=== PATIENT | male | born 1955 | race Caucasian/White ===

== ENCOUNTER 2019-11-08 01:53 | Emergency (ER) | payer OTHER ==
[~2019-11-08] VITALS: Ht 185.4 cm; Wt 79.5 kg
--- NOTE | 2019-11-08 02:05 | NUR ---
CASEY ESTRADA FROM [facility]. PER [facility] STAFF, PT NORMALLY A+OX4 LAST KNOWN WELL WAS 1700. THIS EVENING PT WAS NOTED TO BE A+OX1. IN ER PT ADMITS TO DRINKING ALCOHOL TODAY. PT WITH FLAT AFFECT AND IS NOTED TO BE A+OX4 IN ER. PT ATTACHED TO ALL MONITORS. LAW ENFORCEMENT AT BEDSIDE. PT IN NAD AND RESTING ON GURNEY.
--- NOTE | 2019-11-08 02:15 | NUR ---
LATE ENTRY: REPORT FROM SYLVIA RN, PT RESTING ON [place], NAD, APPEARS COMFORTABLE, DENIES ADDITIONAL NEEDS AT THIS TIME, INFORMED THAT WE NEED A URINE SAMPLE, PT ATTEMPTED TO OBTAIN BUT WAS UNABLE TO URINATE AT THIS TIME. WCLASHANDA.
[2019-11-08 02:31] LABS: BASOPHILS # (AUTO) 0.03 x10^3/uL (0-0.1); BASOPHILS % (AUTO) 1 % (0-1); EOSINOPHILS # (AUTO) 0.05 x10^3/uL (0-0.4); EOSINOPHILS % (AUTO) 1 % (1-7); LYMPHOCYTES # (AUTO) 0.83 x10^3/uL (1-3.4); LYMPHOCYTES % (AUTO) 21 % (22-44); MD NO; MEAN CORPUSCULAR HEMOGLOBIN 36.3 pg (27.5-34.5); MEAN CORPUSCULAR HGB CONC 33.8 g/dL (33.2-36.2); MEAN CORPUSCULAR VOLUME 107.5 fL (81-97); MEAN PLATELET VOLUME 7.9 fL (7.4-10.4); MONOCYTES # (AUTO) 0.33 x10^3/uL (0.2-0.8); MONOCYTES % (AUTO) 8 % (2-9); NEUTROPHILS # (AUTO) 2.79 x10^3/uL (1.8-6.8); NEUTROPHILS % (AUTO) 69 % (42-75); PLATELET COUNT 118 x10^3/uL (130-400); RED BLOOD COUNT 4.01 x10^6/uL (4.38-5.82); RED CELL DISTRIBUTION WIDTH 14.2 % (9.4-14.8)
[2019-11-08 02:43] LABS: ALBUMIN 3.8 g/dL (3.4-5.0); ANION GAP 6 mmol/L (5-15); CALCIUM 8.7 mg/dL (8.5-10.1); CHLORIDE 99 mmol/L (98-107); CREATININE 0.58 mg/dL (0.7-1.3)
--- NOTE | 2019-11-08 03:16 | NUR ---
PT RESTING IN [facility]. WAITING FOR CT. NO CHANGE IN CONDITION, NAD, WAITING FOR UA SAMPLE. WCTM.
--- NOTE | 2019-11-08 03:48 | NUR ---
PT RESTING ON [place], NO CHANGE IN CONDITION, WAITING FOR CT READ. WCTM.
[2019-11-08 04:10] LABS: AMPHETAMINE SCREEN, URINE Negative (Negative); BARBITURATE SCREEN, URINE Negative (Negative); BENZODIAZEPINE SCREEN, URINE Negative (Negative); CANNABINOID SCREEN, URINE Negative (Negative); COCAINE SCREEN, URINE Negative (Negative); METHADONE SCREEN, URINE Negative (Negative); OPIATE SCREEN, URINE Negative (Negative)
[2019-11-08] MEDS ORDERED: THIAMINE 100MG TABLET PO ONE (04:30)
[2019-11-08] MEDS ORDERED: THIAMINE 100MG TABLET ONE (04:45)
[2019-11-08 04:47] VITALS: BP 150/90
--- NOTE | 2019-11-08 04:48 | NUR ---
Patient/Caregiver given discharge instructions and they have confirmed that they understand the instructions. Patient wheeled out of ED. PT NAD, VSS. no pt belongings left in room at discharge.
== END 2019-11-08 04:50 | disposition home or self-care (01) ==
LOC: ED 02:23
DX: R41.82 Altered mental status, unspecified (principal); R94.31 Abnormal electrocardiogram [ECG] [EKG]; R51 Headache
CPT/HCPCS: 36415; 70450; 80048; 80307; 82040; 82140; 85025; 93005; 99285